=== PATIENT | male | born 1955 | race African-American/Black ===

== ENCOUNTER 2016-07-13 10:01 | Emergency (ER) | payer OTHER ==
[~2016-07-13] VITALS: Ht 177.8 cm; Wt 100.0 kg
[~2016-07-13 10:01] MED LIST: ALBU6.7H INH; GABA300 PO; LORT5TAB PO; TYLE3 PO; ZITH250T PO
[2016-07-13 10:14] VITALS: BP 186/100; PULSE 69; RESP 17; TEMP 98.1; O2SAT 97
[2016-07-13] MEDS ORDERED: CART240C PO (12:27)
[2016-07-13] MEDS ORDERED: METF500T PO (12:27)
[2016-07-13] MEDS ORDERED: LISI-515 PO (12:27)
[2016-07-13] MEDS ORDERED: GABAPENTIN 100 MG CAP PO ONE (12:30)
[2016-07-13 12:38] VITALS: BP 158/67; PULSE 78; RESP 16; O2SAT 99
--- NOTE | 2016-07-13 13:00 | PD ---
HPI Chief Complaint: Headache Time Seen by Provider: 12:23 Travel History International Travel<30 days: No Contact w/Intl Traveler<30days: Yes Name of Country Traveled to: [facility] Traveled to known affect area: No History of Present Illness HPI Patient is a 61-year-old male presenting to the emergency department for evaluation of head pain. Patient states it's been ongoing for 3 days, he went to [facility] in [place] yesterday and had a complete workup and was sent home with Amada. He states that he went to the [facility] this morning and due to the complaint they sent him to the emergency department to be evaluated. Patient states that there is pain that he describes as cramping and shooting that lasts for a few seconds and then eases off, it happens very frequently. He denies any lesions on his scalp. He denies any fevers, chills, nausea, vomiting, visual changes. He is HIV positive, he is reportedly compliant with his antiviral medications and his viral load is undetectable. Medical history is significant for hypertension, type 2 diabetes on metformin, hyperlipidemia. Patient denies history of shingles. PFSH Past Medical History High Cholesterol: Yes Diabetes: Yes Patient Takes Glucophage: Yes Diminished Hearing: No Hypertension: Yes Musculoskeletal: Yes (HIV+) Tetanus Vaccination: < 5 Years Influenza Vaccination: Yes Past Surgical History Surgical History: No Previous Surgery Other Surgery: Yes (fx romero) Social History Alcohol Use: No Tobacco Use: No Substance Use: No Allergies-Medications (Allergen,Severity, Reaction): Coded Allergies: No Known Allergies (Verified , 07/13/16) Reported Meds & Prescriptions Reported Meds & Active Scripts Active Reported Lisinopril 20 Mg Tab 20 Mg PO DAILY Review of Systems Except as stated in HPI: all other systems reviewed are Neg HENT: No: Neck Pain Cardiovascular: No: Chest Pain or Discomfort Respiratory: No: Shortness of Breath Gastrointestinal: No: Abdominal Pain Skin: No Rash, No Lumps, No Lesions Neurologic: Positive: Paresthesia, Sensory Disturbance, No: Weakness, Dizziness, Syncope Physical Exam Narrative GENERAL: Well-nourished, well-developed patient. SKIN: Focused skin assessment warm/dry. Right scalp from the temporal region posteriorly is tender and sensitive to touch. There are no vesicular lesions, erythema or rash noted. HEAD: Normocephalic. EYES: No scleral icterus. No injection or drainage. NECK: Supple, trachea midline. No JVD or lymphadenopathy. CARDIOVASCULAR: Regular rate and rhythm without murmurs, gallops, or rubs. RESPIRATORY: Breath sounds equal bilaterally. No accessory muscle use. GASTROINTESTINAL: Abdomen soft, non-tender, nondistended. MUSCULOSKELETAL: No cyanosis, or edema. BACK: Nontender without obvious deformity. No CVA tenderness. Data Data Last Documented VS Vital Signs Date Time Temp Pulse Resp B/P Pulse Ox O2 Delivery O2 Flow Rate FiO2 07/13/16 12:38 78 16 158/67 99 Room Air 07/13/16 10:14 98.1 Orders Gabapentin (Neurontin) (07/13/16 12:30) [facility] Medical Decision Making Medical Screen Exam Complete: Yes Emergency Medical Condition: Yes Interpretation(s) Vital Signs Date Time Temp Pulse Resp B/P Pulse Ox O2 Delivery O2 Flow Rate FiO2 07/13/16 12:38 78 16 158/67 99 Room Air 07/13/16 12:25 17 07/13/16 10:14 98.1 69 17 186/100 97 Differential Diagnosis Neuralgia versus herpes zoster versus tension headache versus cluster headache versus other Narrative Course Patient is a 61-year-old male presenting to the urgency department for evaluation of paresthesia, sensory disturbance to his scalp but has been ongoing for 3 days. Patient had a negative workup for the hospital and landed yesterday however he was sent to the emergency department for evaluation at the [facility] this morning. Patient's blood pressure was elevated on arrival, it was reassessed and has begun to normalize. Patient has a history of hypertension and took lisinopril this morning as he normally does. He has no other complaints at this time. Patient be given gabapentin 1 dose, will reassess for efficacy. Patient continues to have the patient in scalp, patient will be given a prescriptive for gabapentin at home, he was advised to titrate dose up. He was encouraged to follow-up with the [facility]. Patient be given a short course of oral narcotic pain medications for breakthrough pain if needed. Patient was advised to avoid driving or operate machinery taking narcotic pain medication. He was encouraged return to emergency department for any new or worsening symptoms. Discussed plan of care with my attending physician also independently evaluated patient. Patient stable for discharge. Diagnosis Primary Impression: Neuralgia Referrals: Primary Care Physician Patient Instructions: General Instructions, Trigeminal Neuralgia (ED) Additional Instructions: [facility] Take medications as directed Do not drive or operate machinery while taking narcotic pain medication Return to emergency department for any new or worsening symptoms Med/Other Pt SpecificInfo: Prescription(s) given Scripts Gabapentin 300 Mg [id number] Mg PO TID PRN (PAIN SCALE 1 TO 10) 30 Days Ref 0 Take 1 tab by mouth on day 1 Take 1 tab by mouth every 12 hours on day 2 Take 1 tab every 8 hours thereafter Prov:Joan Otto 07/13/16 Hydrocodone-Acetaminophen 5-325 mg Tab1 Tab PO Q4H PRN (PAIN) #12 TAB Ref 0 Prov:Erasmo Nogueira MD 07/13/16 Disposition: 01 DISCHARGE HOME Condition: Stable Joan Otto Jul 13, 2016 13:00
[2016-07-13] MEDS ORDERED: HYDR-3516 PO (13:34)
[2016-07-13] MEDS ORDERED: GABA300C5 PO (13:39)
[2016-07-13 13:45] VITALS: BP 146/81; TEMP 97.8
--- NOTE | 2016-07-13 13:57 | PD ---
Data Data Last Documented VS Vital Signs Date Time Temp Pulse Resp B/P Pulse Ox O2 Delivery O2 Flow Rate FiO2 07/13/16 13:45 97.8 68 16 146/81 99 07/13/16 12:38 Room Air Orders Gabapentin (Neurontin) (07/13/16 12:30) MDM Supervised Visit with [facility]: Yes Narrative Course The history, exam, and medical decision-making in the associated mid-level provider note were completed with my assistance. I reviewed and agree with the findings presented. I attest that I had a [id number] encounter with the patient on the same day, and personally performed and documented my assessment and findings in the medical record. *My assessment and Findings: 61 year-old man resents emergency department with right scalp pain and tenderness with some allodynia. She is a history of HIV. He had a previous evaluation for headache that was reportedly negative. He still having severe pain. Pain seems similar in character to neuropathic pain suggestive of early zoster or occipital neuralgia. He looks otherwise well. He's had the pain for couple days now without evidence of rash suggesting against zoster. We'll recommend treatment with gabapentin, Lortab, and outpatient follow-up with his primary physician. Diagnosis Primary Impression: Neuralgia Referrals: Primary Care Physician Patient Instructions: General Instructions, Trigeminal Neuralgia (ED) Departure Forms: Tests/Procedures Additional Instruction: Follow-up with primary doctor at the [facility] Take medications as directed Do not drive or operate machinery while taking narcotic pain medication Return to emergency department for any new or worsening symptoms Scripts Gabapentin 300 Mg [id number] Mg PO TID PRN (PAIN SCALE 1 TO 10) 30 Days Ref 0 Take 1 tab by mouth on day 1 Take 1 tab by mouth every 12 hours on day 2 Take 1 tab every 8 hours thereafter Prov:Joan Otto 07/13/16 Hydrocodone-Acetaminophen 5-325 mg Tab1 Tab PO Q4H PRN (PAIN) #12 TAB Ref 0 Prov:Erasmo Nogueira MD 07/13/16 Disposition: 01 DISCHARGE HOME Condition: Stable Erasmo Nogueira MD Jul 13, 2016 13:57
== END 2016-07-13 16:54 | disposition home or self-care (01) ==
LOC: NEPD 10:01
DX: M79.2 Neuralgia and neuritis, unspecified (principal); I10 Essential (primary) hypertension; E11.9 Type 2 diabetes mellitus without complications; E78.5 Hyperlipidemia, unspecified; Z79.84 Long term (current) use of oral hypoglycemic drugs; Z21 Asymptomatic human immunodeficiency virus [HIV] infection status
CPT/HCPCS: 99284